=== PATIENT | male | born 1940 | race Caucasian/White ===

== ENCOUNTER → 2019-12-18 13:15 | Outpatient (CLI) | payer MEDICARE, SELFPAY ==
--- NOTE | 2019-12-18 13:21 | STEWCON_ITS ---
Reason For Study: dyspnea on exertion Stress Results Protocol: Fred Protocol WITH DEFINITY Maximum Predicted HR: 140 bpm Target HR: 119 bpm % Maximum Predicted HR: 98 % DurationHeart Rate Stage (mm:ss) (bpm) BP Comment baseline 68 162/78occasional PVC's. 4ml total definity given per protocol. stage 1 3:00 105 158/60no chest pain, occasional PVC's stage 2 3:00 114 160/58no chest pain, occasional PVC's, mild shortness of breath stage 3 1:46 137 / legs cramping and weak, mild shortness of breath, no chest pain recovery 74 144/64no chest pain, occasional PVC's, shortness of breath resolved Stress Duration: 7:46 mm:ss Maximum Stress HR: 137 bpm METS: 9 Baseline Echocardiogram Findings Stress Echo Wall motion Data Resting WM Intermediate WM Stress WM Resting Wall Motion Wall Motion Stress All segments Normal. All segments Hyperkinetic. Ejection Fraction 60 %. Ejection Fraction 70 %. Stress Results Heart rate response: Appropriate Blood pressure response: Resting hypertension-blunted response Arrhythmias: Occasional PVC pretest and in recovery Functional capacity: Good Stopped secondary to: Dyspnea and leg fatigue. EKG Data Baseline ECG: Normal sinus rhythm. Peak exercise ECG: Somatic/motion artifact with no obvious ECG changes. Symptoms with Stress No complaint of chest discomfort during exercise or recovery. Interpretation Summary 1. Contrast injection performed 2. Negative (adequate) stress echocardiogram Ordering Physician: John Vásquez Referring Physician: John Vásquez Performed By: Zuhair Stuart RCS
== END ==
PROVIDERS: PCP Family Medicine; Referring Provider Family Medicine; Visit Provider Family Medicine
DX: E78.2 Mixed hyperlipidemia (principal); R06.00 Dyspnea, unspecified
CPT/HCPCS: 93017; 93350; Q9957; A4216; C8928

== ENCOUNTER → 2023-03-16 | Outpatient (CLI) | payer MEDICARE, SELFPAY ==
[2023-03-16 10:04] LABS: PSA,Total- Diagnostic 2.99 ng/mL (0.0-4.0)
== END | disposition home or self-care (01) ==
PROVIDERS: PCP Family Medicine; Referring Provider Urology; Visit Provider Urology
DX: N40.1 Benign prostatic hyperplasia with lower urinary tract symptoms (principal)
CPT/HCPCS: 36415; 84153